=== PATIENT | male | born 1980 | race Two or more races ===

== ENCOUNTER 2020-01-03 09:31 | Emergency (ER) | payer OTHER, MEDICAID ==
[~2020-01-03] VITALS: Ht 177.8 cm; Wt 108.9 kg
[2020-01-03 09:44] VITALS: BP 161/103
[2020-01-03] MEDS ORDERED: IBUPROFEN 600 MG TABLET PO ONE ×2 (10:00→10:14)
--- NOTE | 2020-01-03 10:19 | NUR ---
PT IS MEDICALLY CLEARED FOR BOOKING. PT IS RELEASED UNDER THE CARE OF [facility]. PT IS IN STABLE CONDITION. RX AND ACI GIVEN. PT IS AMBULATORY ON STEADY GAIT
== END 2020-01-03 10:20 ==
LOC: ER 09:36
DX: M54.5 Low back pain (principal); G89.29 Other chronic pain; I10 Essential (primary) hypertension; Z59.0 Homelessness; Z02.89 Encounter for other administrative examinations

== ENCOUNTER 2022-02-10 10:06 | Emergency (ER) | payer MEDICAID, OTHER ==
[~2022-02-10] VITALS: Ht 177.8 cm; Wt 104.3 kg
--- NOTE | 2022-02-10 10:06 | NUR ---
PT DIXIE [employer] FROM LONG TERM FOR MED CLEARANCE PT C/O DIZZINESS AND "FEELING WEAK FOR 2 DAYS" PT IS AAOX4, NOT IN RESPIRATORY DISTRESS, HOOKED TO V/S MONITOR, KEPT RESTED AND COMFORTABLE. REPORTED TO . WILL CONTINUE TO MONITOR.
--- NOTE | 2022-02-10 10:30 | NUR ---
PT IS WHEELED TO CT SCAN VIA [facility].
--- NOTE | 2022-02-10 10:58 | NUR ---
IV LINE INSERTED ON BRANDIE #20, BLOOD DRAWN AND SENT TO LAB
[2022-02-10] MEDS ORDERED: IV NS 0.9% 1,000 ML BAG IV ONE (11:00)
[2022-02-10 11:08] LABS: BASOPHILS # (AUTO) 0.1 K/uL (0.0-0.2); BASOPHILS % (AUTO) 0.7 % (0.0-2.0); EOSINOPHILS % (AUTO) 1.3 % (0.0-6.0); HEMATOCRIT 53 % (39-51); HEMOGLOBIN 17.6 g/dL (13.5-17.5); LYMPHOCYTES # (AUTO) 1.4 K/uL (0.8-4.8); LYMPHOCYTES % (AUTO) 16.1 % (20.0-44.0); MEAN CORPUSCULAR HGB CONC 33 g/dl (31.0-36.0); MEAN CORPUSCULAR VOLUME 88 fL (80-96); MONOCYTES # (AUTO) 0.7 K/uL (0.1-1.30); NEUTROPHILS # (AUTO) 6.3 K/uL (1.8-8.9); NEUTROPHILS % (AUTO) 73.9 % (43.0-81.0); PLATELET COUNT (AUTO) 384 K/uL (150-450); RED BLOOD CELL COUNT(AUTO) 6.01 MIL/uL (4.5-6.0); WHITE BLOOD COUNT (AUTO) 8.6 K/uL (4.3-11.0)
--- NOTE | 2022-02-10 11:10 | NUR ---
tech at bedside for ekg
[2022-02-10 11:46] LABS: CALCIUM, SERUM 9.1 mg/dL (8.5-10.1); CARBON DIOXIDE 27 mmol/L (21-32); CHLORIDE 101 mmol/L (98-107); GLUCOSE 93 mg/dL (74-106); POTASSIUM 4.1 mmol/L (3.5-5.1); SODIUM SERUM 137 mmol/L (136-145); UREA NITROGEN, BLOOD 20 mg/dL (7-18)
[2022-02-10 11:56] LABS: ALANINE AMINOTRANSFERASE 27 U/L (12-78); ALBUMIN 3.8 g/dL (3.4-5.0); ALKALINE PHOSPHATASE 74 U/L (46-116); ASPARTATE AMINOTRANSFERASE 13 U/L (15-37); BILIRUBIN,DIRECT 0.1 mg/dL (0.0-0.2); BILIRUBIN,TOTAL 0.6 mg/dL (0.2-1.0); TOTAL PROTEIN, SERUM 8.2 g/dL (6.4-8.2)
[2022-02-10] MEDS ORDERED: ONDA4TAB5 PO (13:39)
--- NOTE | 2022-02-10 14:50 | NUR ---
IV removed. Catheter intact and site benign. Pressure and 4x4 applied to site. No bleeding noted. Patient discharged in custody in stable condition. Written and verbal after care instructions given. Patient verbalizes understanding of instruction.
[2022-02-10 14:51] VITALS: BP 131/88
== END 2022-02-10 14:52 ==
LOC: ER 10:14
DX: R42 Dizziness and giddiness (principal); R11.2 Nausea with vomiting, unspecified; I10 Essential (primary) hypertension; G62.9 Polyneuropathy, unspecified
CPT/HCPCS: 99285; 96360; 70450; 71045; 93005; 85025; 80048; 80076; 36415; 84484 ×2; 85730; J7040